=== PATIENT | female | born 1950 | race Caucasian/White ===

== ENCOUNTER → 2017-03-21 | Outpatient (CLI) | payer OTHER | LOC: BMCIMAGING 11:47 | PROVIDERS: ATTEND Physician Assistant | DX: R05 Cough (principal) ==

== ENCOUNTER → 2017-09-03 | Outpatient (CLI) | payer OTHER | LOC: BMCIMAGING 13:00 | PROVIDERS: ATTEND Physician Assistant | DX: R10.11 Right upper quadrant pain (principal); K76.0 Fatty (change of) liver, not elsewhere classified; K82.4 Cholesterolosis of gallbladder ==

== ENCOUNTER → 2017-09-06 | Outpatient (CLI) | payer OTHER | LOC: FIMAGING 08:25 | PROVIDERS: ATTEND Physician Assistant | DX: R10.11 Right upper quadrant pain (principal) | CPT/HCPCS: 78227; A9537 ==

== ENCOUNTER 2018-01-17 10:17 | Day surgery (SDC) | payer OTHER ==
[~2018-01-17 10:17] MED LIST: CHLORTHALIDONE 25 MG TAB PO SCH
--- NOTE | 2018-01-17 10:27 | POSTANESTH ---
Post Anesthetic Evaluation Cardiovascular Status: Normal, Stable Respiratory Status: Normal, Stable Level of Consciousness/Mental Status: Can Participate in Eval, Mildly Sleepy, Arousable Pain Control: Inadeq, Add Tx Required Nausea/Vomiting Control: Adequate, Prn Tx Ordered Complications Possibly Related to Anesthesia: None Noted
--- NOTE | 2018-01-17 10:28 | PDANEPAE ---
ANE History of Present Illness 67 yo female with gallbladder dysfunction for cholecystectomy. ANE Past Medical History - Cardiovascular History Hx Hypertension: Yes Hx Arrhythmias: No Hx Chest Pain: No Hx Coronary Artery / Peripheral Vascular Disease: No Hx CHF / Valvular Disease: No Hx Palpitations: No - Pulmonary History Hx COPD: No Hx Asthma/Reactive Airway Disease: No Hx Recent Upper Respiratory Infection: No Hx Oxygen in Use at Home: No Hx Sleep Apnea: No Sleep Apnea Screening Result - Last Documented: Negative - Neurologic History Hx Cerebrovascular Accident: No Hx Seizures: No Hx Dementia: No - Endocrine History Hx Diabetes: No Hypothyroid: Yes Hyperthyroid: No Obesity: no - Renal History Hx Renal Disorders: No - Liver History Hx Hepatic Disorders: No Hepatic History Comment: GALL BLADDER SXS - Neurological & Psychiatric Hx Hx Neurological and Psychiatric Disorders: No - Cancer History Hx Cancer: No - Congenital Disorder History Hx Congenital Disorders: No - GI History Hx Gastrointestinal Disorders: No - Other Health History Other Health History: NEG - Chronic Pain History Chronic Pain: Yes (INTERMITTENT HIP PAIN) - Surgical History Prior Surgeries: APPENDECTOMY 1959. MACULAR SURG R 2012. ABDOMINOPLASTY 2013. BREAST REDUCTION 2015. TUBAL LIGATION ANE Review of Systems Review of Systems: - Exercise capacity METS (RN): 4 METS - Systems Constitutional: Reports: recent illness Cardiac: Reports: no symptoms Respiratory: Reports: cough (last week, resolved now; dry cough) ANE Patient History - Allergies Allergies/Adverse Reactions: No Known Allergies Allergy (Unverified 01/08/18 12:17) - Home Medications Home Medications: Chlorthalidone 01/08/18 [Last Taken Unknown] Clonazepam 01/08/18 [Last Taken Unknown] Herbals/Supplements -Info Only 01/08/18 [Last Taken Unknown] Levothyroxine 01/08/18 [Last Taken Unknown] Mirtazapine 01/08/18 [Last Taken Unknown] - Anes Hx Anes Hx: no prior problems - Smoking Hx Smoking Status: Never smoked - Family Anes Hx Family Anes Hx: neg - N/A Family Hx Anesthesia Complications: NEG ANE Labs/Vital Signs - Vital Signs Vital Signs: reviewed preoperatively; see RN documention for details Height: 170.18 cm Weight: 70.307 kg ANE Physical Exam - Airway Neck exam: FROM (short TMD) Mallampati Score: Class 2 Mouth exam: normal dental/mouth exam - Pulmonary Pulmonary: clear to auscultation - Cardiovascular Cardiovascular: regular rate and rhythym - ASA Status ASA Status: II ANE Anesthesia Plan Anesthesia Plan: general endotracheal anesthesia
[2018-01-17] MEDS ORDERED: ceFAZolin 2 GM/DEXTROSE 100 ML IV ONE (10:40)
[2018-01-17] MEDS ORDERED: LR 1,000 ML IV ONE (10:41)
[2018-01-17] MEDS ORDERED: BUPIVACAINE 0.25% 30 ML SDV ONE (11:02)
--- NOTE | 2018-01-17 11:10 | PDHPUP ---
History & Physical Update H&P update statement: This history and physical update is based on an assessment of the patient which was completed after admission or registration (within 24 hours), but prior to the surgery/procedure. H&P update: H&P reviewed & patient examined, no change in patient's condition since H&P completed
[2018-01-17] MEDS ORDERED: DEXAMETHASONE 4 MG/ML VIAL ONE ×2 (11:29→11:30)
[2018-01-17] MEDS ORDERED: LIDOCAINE 2% 5 ML SDV ONE (11:29)
[2018-01-17] MEDS ORDERED: ROCURONIUM 100 MG/10 ML VIAL ONE (11:30)
[2018-01-17] MEDS ORDERED: fentaNYL 100 MCG/2 ML INJ ONE ×4 (11:30→13:22)
[2018-01-17] MEDS ORDERED: PROPOFOL 200 MG/20 ML VIAL ONE (11:30)
[2018-01-17] MEDS ORDERED: NALOXONE HCL 0.4 MG/ML INJ IVP PRN (12:23)
[2018-01-17] MEDS ORDERED: ONDANSETRON 4 MG/2 ML VIAL ONE (12:24)
[2018-01-17] MEDS ORDERED: NEOSTIGMINE METHYLSULFATE 5 MG/5 ML SYR ONE (12:24)
[2018-01-17] MEDS ORDERED: GLYCOPYRROLATE 0.2 MG/1 ML VIAL ONE (12:24)
[2018-01-17] MEDS ORDERED: KETOROLAC 30 MG/1 ML SDV ONE (12:24)
[2018-01-17] MEDS ORDERED: PROMETHAZINE HCL 25 MG/ML INJ IVP PRN (12:33)
[2018-01-17] MEDS ORDERED: HYDROCODONE/APAP 5/325 TAB PO PRN (12:33)
[2018-01-17] MEDS ORDERED: ALBUTEROL 3 ML DEYVIAL IH PRN (12:33)
[2018-01-17] MEDS ORDERED: ACETAMINOPHEN 500 MG TAB PO PRN (12:33)
[2018-01-17] MEDS ORDERED: LR 500 ML IV PRN (12:33)
[2018-01-17] MEDS: fentaNYL 100 MCG/2 ML INJ IVP PRN ×4 (12:55→13:33)
[2018-01-17] MEDS ORDERED: HYDROmorphONE/DILAUDID 1 MG/ML INJ IVP PRN (13:03)
--- NOTE | 2018-01-17 13:07 | POSTOPPROG ---
Post Op Note Date of Operation: 01/17/18 Surgeon: Claude Hung (, FACS) Touch Up Painter: Lucina March PA-C Anesthesiologist: Pam Toribio DO Anesthesia: GET(General Endotracheal) Pre-op Diagnosis: biliary dyskinesia Procedure: lap cholecystectomy Inf/Abcess present in the surg proc area at time of surgery?: No
[2018-01-17] MEDS ORDERED: HYDROmorphONE/DILAUDID 2 MG/ML INJ ONE (13:11)
[2018-01-17] MEDS ORDERED: HYDROCODONE/APAP 5/325 TAB ONE (13:25)
--- NOTE | 2018-01-17 13:39 | GOP ---
DATE OF OPERATION: 01/17/2018 SURGEON: Claude Hung MD, FACS PAID INTERN: Lucina March PA-C. ANESTHESIA: General endotracheal. ANESTHESIOLOGIST: Pam Sauer DO PREOPERATIVE DIAGNOSIS: Biliary dyskinesia. POSTOPERATIVE DIAGNOSIS: Biliary dyskinesia. PROCEDURE PERFORMED: Laparoscopic cholecystectomy. FINDINGS: Mild chronic appearing cholecystitis. Normal-appearing liver. No intraabdominal adhesions. ESTIMATED BLOOD LOSS: 2 mL or less. DESCRIPTION OF PROCEDURE: After informed consent was obtained, the patient was brought to the operating room and placed under general anesthesia. The abdomen was prepped and draped in usual fashion. Before proceeding, a time-out and identification of the patient was performed. The patient had a prior abdominoplasty. The infraumbilical incision was infiltrated with 0.25% Marcaine and incised transversely and ventral traction applied to the abdominal wall. A Veress needle was introduced into the peritoneal cavity. Position was confirmed by saline infusion. A pneumoperitoneum was established with CO2 gas to a pressure of 15 mmHg. The Veress needle was withdrawn and replaced with a 5 mm bladeless trocar. This allowed introduction of a 30 degree 5 mm scope. The peritoneal cavity was visualized. There were no adhesions noted. A 12 mm port was placed in the subxiphoid position. Two 5 mm ports were placed in the right upper quadrant, midclavicular line and anterior axillary line. Atraumatic grasping forceps were introduced and the gallbladder was grasped by the fundus and retracted cephalad, elevating the liver. The infundibulum was grasped and manipulated anteriorly and posteriorly and the peritoneum dissected away from the triangle of Calot using the Harmonic Scalpel. This left the cystic duct and artery. The artery was dispatched with a Harmonic Scalpel. The duct was doubly hemoclipped and divided. The gallbladder was dissected away from the liver edge using the Harmonic Scalpel with essentially no blood loss. The gallbladder was retrieved through the 12 mm port site. The operative field appeared hemostatic. The 12 mm port site was closed with a transfascial closure needle and 0 Vicryl suture. The pneumoperitoneum was evacuated. The subcu tissues were closed with 3-0 Monocryl suture. Skin of all incisions was closed with 4-0 Monocryl suture in a subcuticular fashion followed by Dermabond. The patient was returned extubated to the recovery room in satisfactory condition. Needle, sponge and instrument count were correct. COMPLICATIONS: None. /[id number]/MODL MTDD
[2018-01-17 14:35] VITALS: BP 132/74
== END 2018-01-17 14:51 | disposition home or self-care (01) ==
LOC: FSGY 10:17 → EEVIPCON 11:45 → FSGY 14:51
PROVIDERS: ATTEND Surgery
PROC: 0FT44ZZ Resection of Gallbladder, Percutaneous Endoscopic Approach (ICD-10-PCS; principal; 2018-01-17 11:45)
DX: K81.1 Chronic cholecystitis (principal); K82.8 Other specified diseases of gallbladder; I10 Essential (primary) hypertension; E03.9 Hypothyroidism, unspecified; Z78.0 Asymptomatic menopausal state
CPT/HCPCS: J0690; J1100; J1170; J1885; J2405; J2704; J2710; J3010